=== PATIENT | female | born 1935 | race Caucasian/White ===

== ENCOUNTER 2017-01-09 12:15 | Observation (INO) | payer MEDICARE, BC, OTHER ==
[~2017-01-09] VITALS: Ht 162.6 cm; Wt 81.7 kg
[~2017-01-09 12:15] MED LIST: KEFLEX500 MG PO; METOPROLOL TART50 MG PO; NORVASC5 MG PO; PANTOPRAZOLE SO40 MG PO; PROZAC20 MG PO
[2017-01-09] MEDS ORDERED: AMITRIPTYLINE H50 MG PO (12:48)
[2017-01-09] MEDS ORDERED: ARIPIPRAZOLE5 MG PO (15:36)
[2017-01-09] MEDS ORDERED: VENTOLIN HFA18 GM INH (15:38)
--- NOTE | 2017-01-09 15:39 | NUR ---
MED REC COMPLETE WITH [employer] AND [employer] REFILL HISTORY.
--- NOTE | 2017-01-09 16:02 | NUR ---
PATIENT ADMITTED TO ROOM 122 FROM ER, ALERT AND ORIENTED AT THIS TIME AND NO S/S OF ANY NEURO DEFICIT UPON ADMIT TO THE FLOOR. PATIENT HAS AMBULATED TO THE BATHROOM WITH STANDBY ASSIST AND IS STEADY ON HER FEET. SHE IS ABLE TO ANSWER ALL OF HER ADMIT QUESTIONS HERSELF AND IS ORIENTED TO HER ROOM. PATIENT VITALS ARE TAKEN AND SHE REMAINS ON RA. NO C/O PAIN AND NO SOB AT THIS TIME.
--- NOTE | 2017-01-09 18:45 | NUR ---
PATIENT INDEPENDANT IN ROOM, PROVIDING STBY ASSIST. CLAUS CHECKS INSIGNIFICANT. NO COMPLAITNS OF PAIN. PROVIDED WATER. PLAN FOR ECHO OF HEART TOMORROW. VS STABLE. PATIENT HAS NO COMPLAINTS OF STROKE LIKE SYMPTOMS, TELE#8
--- NOTE | 2017-01-09 19:12 | EKG ---
[facility] [address] [facility] [place] [address] Signed Normal sinus rhythm Moderate voltage criteria for LVH, may be normal variant Borderline ECG When compared with ECG of 07-OCT-2016 18:15, Nonspecific T wave abnormality no longer evident in Lateral leads Confirmed by CHIARA PENA MD ([id number]) on 01/09/2017 7:12:29 PM Electronically Signed By: CHIARA PENA MD 01/09/171911 PATIENT NAME: PAYTON BARBA Electrocardiogram DATE OF : 39 PHYSICIAN: CHIARA PENA MD REPORT #: [id number] REPORT IS CONFIDENTIAL AND NOT TO BE RELEASED WITHOUT AUTHORIZATION
--- NOTE | 2017-01-09 19:32 | NUR ---
SHIFT REPORT RECIEVED. PATIENT RESTING IN BED. AWAKE AND ALERT. CALL LIGHT IN REACH. DENIES NEEDS AT THIS TIME.
--- NOTE | 2017-01-09 19:48 | NUR ---
CALLED AND DISCUSSED WITH DR. PENA ABOUT PT REQUESTING SLEEPING MEDICATION. DR. PENA STATES THAT IT IS OK FOR HER TO RECEIVE HER PRN AMITRIPTYLINE.
--- NOTE | 2017-01-09 19:59 | NUR ---
EVENING MEDS GIVEN PER ORDER. PATIENT ASSESSMENT COMPLETED AND DOCUMENTED. NEURO CHECK COMPLETE, WNL. PATIENT AAOX3. CRYPTOGRAPHIC VULNERABILITY ANALYST STRENGTH STRONG, EQUAL BILATERALLY. CMS INTACT IN UPPER AND LOWER EXTREMITIES. PUPILS EQUAL AND REACTIVE TO LIGHT. FACIAL MOVEMENTS SYMETYRICAL. PATIENT RESTING IN BED. DENIES PAIN AND NAUSEA. PATIENT STATES HER LAST BOWEL MOVEMENT WAS 01/07/17. STATES SHE IS IRREGULAR WITH HER BM AND USUALLY GOES 4-5 DAYS WITHOUT HAVING ONE. NO FURTHER NEEDS AT THIS TIME. CALL LIGHT IN REACH.
--- NOTE | 2017-01-09 23:12 | NUR ---
PATIENT RESTING IN BED. TELE #8, HR 64. EYES CLOSED. RR14. CALL LIGHT IN REACH.
--- NOTE | 2017-01-10 00:05 | NUR ---
LINDSEY CHECK COMPLETED. FINDINGS WNL. ASSESSMENT DOCUMENTED. TELE BATTERY CHANGED, HR 50 AT SLEEP.
--- NOTE | 2017-01-10 02:00 | NUR ---
PATIENT RESTIN GIN BED. DENIED BLOOM CONVEYOR OPERATOR'S OFFER TO USE THE RESTROOM. TELL #8, HR 53.
--- NOTE | 2017-01-10 04:00 | NUR ---
NEURO CHECK WAS WDL.
--- NOTE | 2017-01-10 04:26 | NUR ---
PT IS SLEEPING AT THIS TIME.
--- NOTE | 2017-01-10 05:10 | NUR ---
PATIENT RESTED WELL THROUGOUT THE NIGHT. NEURO CHECKS Q4, WNL. PATIENT HAD SLURRED SPEECH AND RIGHT SIDED WEAKNESS YESTERDAY BEFORE COMING INTO ED. SYMPTOMS REVOLVED PRIOR TO ARRIVAL. PATIENT ON OBSERVATION. CARDIAC DIET. TELE #8. HAS NOT HAD BM SINCE 01/07/17, STATES THAT IS NORMAL FOR HER. PATIENT DENIED PAIN OR NAUSEA DURING SHIFT. IV IN THE LEFT AC, SL.
--- NOTE | 2017-01-10 07:10 | NUR ---
BEDSIDE REPORT RECEIVED FROM MARY BROWNE, PT AWAKE IN BED. IMAGING IN ROOM WITH PT. PT COMPLAINING OF BACK PAIN, WILL ADMINISTER PRN PAIN MEDICATION. WILL CONTINUE TO MONITOR.
--- NOTE | 2017-01-10 08:28 | NUR ---
PT AWAKE IN BED, ALERT, ORIENTED X3. PT HAS NO NUMBNESS, NO WEAKNESS IN EXTREMITIES BILATERALLY. PT PUPILS EQUAL ROUND AND REACTIVE TO LIGHT. PTS LUNGS CLEAR. NO EDEMA NOTED IN LOWER EXTREMITIES. PT REPORTS NO VISUAL DISTURBANCES. PT STATING SHE IS READY TO GO HOME, "NO REASON TO KEEP ME HERE". PT ATE 85% OF BREAKFAST. BP 143/71, HR 67. PT STATING SOME BACK PAIN, ADMINISTERED PRN ACETAMINOPHEN 500 MG. CALL LIGHT IN REACH, WILL CONTINUE TO MONITOR.
[2017-01-10] MEDS ORDERED: ATORVASTATIN CA40 MG PO ×2 (11:07→11:14)
[2017-01-10] MEDS ORDERED: ASPIRIN EC81 MG PO (11:08)
--- NOTE | 2017-01-10 11:27 | NUR ---
REFUSED SHOWER WANTS TO TAKE A SHOWER AT HOME.
--- NOTE | 2017-01-10 11:50 | NUR ---
DISCHARGE INSTRUCTIONS GIVEN TO PT BY RN AND PHARMACIST. PT HAS NO ADDITIONAL QUESTIONS. PT PROVIDED WITH WRITTEN MATERIAL REGARDING TIA, STROKE, AND CHOLESTEROL. IV D/C'D, TIP INTACT, PT SHIRA. WELL.
== END 2017-01-10 12:00 | disposition home or self-care (01) ==
LOC: ED 12:15 → MS 12:16
PROVIDERS: ADMIT Internal Medicine
DX: G45.1 Carotid artery syndrome (hemispheric) (principal); G81.91 Hemiplegia, unspecified affecting right dominant side; R47.1 Dysarthria and anarthria; E78.5 Hyperlipidemia, unspecified; I10 Essential (primary) hypertension; H91.10 Presbycusis, unspecified ear; F39 Unspecified mood [affective] disorder; F51.04 Psychophysiologic insomnia; Z79.899 Other long term (current) drug therapy; Z87.891 Personal history of nicotine dependence; Z82.3 Family history of stroke
CPT/HCPCS: 70450; 71010; 80053; 80061; 81001; 83036; 84484; 85025; 85610; 85730; 93005; 93010; 93306; 96372; 99285; G0378; J1650

== ENCOUNTER 2017-01-23 08:17 | Emergency (ER) | payer MEDICARE, BC, SELFPAY ==
[~2017-01-23] VITALS: Ht 162.6 cm; Wt 81.2 kg
[~2017-01-23 08:17] MED LIST changes: +AMITRIPTYLINE H50 MG PO; +ARIPIPRAZOLE5 MG PO; +ASPIRIN EC81 MG PO; +ATORVASTATIN CA40 MG PO; +VENTOLIN HFA18 GM INH
[2017-01-23] MEDS ORDERED: MECLIZINE HCL25 MG PO (09:32)
--- NOTE | 2017-01-23 21:55 | EKG ---
[facility] [address] [facility] [place] [address] Signed Normal sinus rhythm Voltage criteria for left ventricular hypertrophy Nonspecific T wave abnormality Abnormal ECG When compared with ECG of 09-JAN-2017 12:48, Nonspecific T wave abnormality now evident in Anterolateral leads Confirmed by CHIARA PENA MD ([id number]) on 01/23/2017 9:55:01 PM Electronically Signed By: CHIARA PENA MD 01/23/17 2155 PATIENT NAME: PAYTON BARBA Electrocardiogram DATE OF : 39 PHYSICIAN: CHIARA PENA MD REPORT #: [id number] REPORT IS CONFIDENTIAL AND NOT TO BE RELEASED WITHOUT AUTHORIZATION
== END 2017-01-23 09:44 | disposition home or self-care (01) ==
LOC: ED 08:17
DX: R42 Dizziness and giddiness (principal); I10 Essential (primary) hypertension; Z87.891 Personal history of nicotine dependence; Z79.82 Long term (current) use of aspirin; Z79.899 Other long term (current) drug therapy
CPT/HCPCS: 70450; 80053; 84484; 85025; 93005; 93010; 96360; 99284; J7030

== ENCOUNTER 2017-03-03 12:19 | Observation (INO) | payer MEDICARE, BC ==
[~2017-03-03] VITALS: Ht 162.6 cm; Wt 81.2 kg
[~2017-03-03 12:19] MED LIST changes: +MECLIZINE HCL25 MG PO
[2017-03-03] MEDS ORDERED: HYDROCHLOROTHIA25 MG PO (12:52)
[2017-03-03] MEDS ORDERED: ASPIRIN325 MG PO (12:55)
--- NOTE | 2017-03-03 14:25 | EKG ---
[facility] [address] [address] [place] [address] Signed Normal sinus rhythm Moderate voltage criteria for LVH, may be normal variant Borderline ECG When compared with ECG of 23-JAN-2017 08:38, No significant change was found Confirmed by CHIARA PENA MD ([id number]) on 03/03/2017 2:24:43 PM Electronically Signed By: CHIARA PENA MD 03/03/17 1425 PATIENT NAME: PAYTON BARBA Electrocardiogram DATE OF : 39 PHYSICIAN: CHIARA PENA MD REPORT #: [id number] REPORT IS CONFIDENTIAL AND NOT TO BE RELEASED WITHOUT AUTHORIZATION
--- NOTE | 2017-03-03 17:04 | NUR ---
PT ARRIVED ON THE FLOOR VIA STRETCHER. PT ABLE TO SELF TRANSFER TO BED. PT HARD OF HEARING AT BASELINE, HEARING AID RIGHT EAR ONLY. PT REPORTS PAIN IN BACK WHICH IS CHRONIC. ALSO REPORTS HEADACHE. SLIGHT L FACIAL DROOP, EYES EQUAL AND REACTIVE, CABLE WAY OPERATOR EQUAL, NO DRIFTING OF ARMS, CMS INTACT. PT HAS SLURRED SPEECH AT BASELINE. HOME MEDS VERIFIED WITH PHARMACY, PT, AND PT'S DAUGHTER. HOME MEDS SENT HOME WITH PTS DAUGHTER. PT STATED THAT SYMPTOMS APPEARED AND DISAPPEARED VERY QUICKLY. STATES SHE FEELS NORMAL NOW.
--- NOTE | 2017-03-03 17:11 | NUR ---
Medications reconciled by pharmacist using prescription bottles, pharmacy records and patient interview. Recently started on trial of HCTZ for unexplained hearing loss. Patient's amlodipine was discontinued at that time to avoid hypotension.
--- NOTE | 2017-03-03 19:15 | NUR ---
RECEIVED REPORT FROM RN. PATIENT IS RESTING COMFORTABLY IN BED, DENIES NEEDS AT THIS TIME. CALL LIGHT WITHIN REACH.
--- NOTE | 2017-03-03 21:30 | NUR ---
PATIENT IS RESTING COMFORTABLY IN BED, BREATHING IS EVEN AND UNLABORED. VITALS AND SHIFT ASSESSMENT DONE. DENIES NEEDS AT THIS TIME. CALL LIGHT WITHIN REACH.
--- NOTE | 2017-03-04 02:34 | NUR ---
PATIENT RESTING COMFORTABLY IN BED, BREATHING IS EVEN AND UNLABORED. SHE DENIES NEEDS AT THIS TIME. VITALS AND ASSESSMENT DONE. EDUCATED PATIENT ON SAFETY AND THE IMPORTANCE OF CALLING STAFF FOR ASSISTANCE TO BATHROOM. DUE TO PATIENT BEING LYTTON, EVEN WITH HEARING DEVICE IN, INSTRUCTION WAS WRITTEN AND PATIENT READ BACK INFORMATION AND REPORTED UNDERSTANDING. CALL LIGHT WITHIN REACH.
--- NOTE | 2017-03-04 04:56 | NUR ---
PATIENT'S NIGHT WAS UNEVENTFUL. SHE HAS BEEN RESTING COMFORTABLY IN BED THROUGHOUT SHIFT. VSS, PATIENT HAS HAD NO COMPLAINTS OF PAIN. SHE IS A SBA, HER IV IS SALINE LOCKED. TELEMETRY HAS BEEN UNREMARKABLE WITH PATIENT REMAINING IN SINUS RHYTHM. NO ACUTE CHANGES FROM BEGINNING OF SHIFT ASSESSMENT.
--- NOTE | 2017-03-04 05:28 | NUR ---
PATIENT RESTING COMFORTABLY IN BED, BREATHING IS EVEN AND UNLABORED. PULSE OF 61, CURRENTLY IN SINUS RHYTHM. CALL LIGHT WITHIN REACH.
--- NOTE | 2017-03-04 05:53 | NUR ---
PATIENT RESTING COMFORTABY IN BED, BREATHING IS EVEN AND UNLABORED. DENIES NEEDS AT THIS TIME. ASSESSMENT DONE, CALL LIGHT WITHIN REACH.
--- NOTE | 2017-03-04 06:03 | NUR ---
PATIENT REPORTS 7/10 PAIN IN LEFT KNEE. PRN TYLENOL GIVEN PER EMAR. DENIES OTHER NEEDS AT THIS TIME. CALL LIGHT WITHIN REACH.
--- NOTE | 2017-03-04 07:24 | NUR ---
REPORT RECIEVED FROM MARY BENNETT. PT ASLEEP.
--- NOTE | 2017-03-04 07:54 | NUR ---
PATIENT IN BED DOING WELL. DOES NOT WANT TO GET INTO CHAIR FOR BREAKFAST. REFILLED ICE WATER, UPDATED WHITEBOARD, TIDIED ROOM .
--- NOTE | 2017-03-04 08:06 | NUR ---
PT NOTTAWASEPPI POTAWATOMI BUT CAN HEAR THIS RN AND ANSWERS QUESTIONS APPROP. STATES ALL S\S HAVE RESOLVED.
[2017-03-04] MEDS ORDERED: PLAVIX75 MG PO (09:19)
--- NOTE | 2017-03-04 11:02 | NUR ---
GOT PATIENT DRESSED AND READY FOR DISCHARGE.
--- NOTE | 2017-03-04 11:07 | NUR ---
MADE AN APPT. WITH CORNEL KAUFFMAN AND FAXED ALL THE PAPERWORK NEEDED FOR THEM TO HAVE FOR HER APPT ON FRIDAY. THEY KNOW THAT DR DEL VALLE WOULD LIKE HER REFERRED TO DR MALONE A VASCULAR DR IN [place].
== END 2017-03-04 11:00 | disposition home or self-care (01) ==
LOC: ED 12:19 → MS 12:21
PROVIDERS: ADMIT Internal Medicine
DX: G45.9 Transient cerebral ischemic attack, unspecified (principal); R93.8 Abnormal findings on diagnostic imaging of other specified body structures; I10 Essential (primary) hypertension; E78.5 Hyperlipidemia, unspecified; F39 Unspecified mood [affective] disorder; H91.90 Unspecified hearing loss, unspecified ear; R42 Dizziness and giddiness; Z79.82 Long term (current) use of aspirin; Z79.899 Other long term (current) drug therapy; Z86.73 Personal history of transient ischemic attack (TIA), and cerebral infarction without residual deficits
CPT/HCPCS: 36415; 70450; 70496; 70498; 71010; 80048; 80053; 85025; 85610; 85730; 93005; 93010; 99285; G0378; Q9967

== ENCOUNTER 2017-03-17 18:05 | Emergency (ER) | payer MEDICARE, BC ==
[~2017-03-17] VITALS: Ht 162.6 cm; Wt 81.2 kg
[~2017-03-17 18:05] MED LIST changes: +ASPIRIN325 MG PO; +HYDROCHLOROTHIA25 MG PO; +PLAVIX75 MG PO
[2017-03-17] MEDS ORDERED: AMLODIPINE BESYL5 MG PO (18:52)
== END 2017-03-17 20:32 | disposition home or self-care (01) ==
LOC: ED 18:05
DX: R15.9 Full incontinence of feces (principal); I10 Essential (primary) hypertension; Z86.73 Personal history of transient ischemic attack (TIA), and cerebral infarction without residual deficits; Z90.49 Acquired absence of other specified parts of digestive tract; Z96.651 Presence of right artificial knee joint; Z79.899 Other long term (current) drug therapy
CPT/HCPCS: 99284

== ENCOUNTER 2018-01-19 11:02 | Inpatient (IN) | payer MEDICARE, BC ==
[~2018-01-19] VITALS: Ht 162.6 cm; Wt 77.8 kg
--- OUTSIDE RECORDS SUMMARY | ~2018-01-19 | XMS | Clinical Summary ---
Demographics + + + | Address | [address] | | | [place] [address] | + + + | Home Phone | | + + + | Preferred Language | Unknown | + + + | Marital Status | | + + + | Synagogue Affiliation | Unknown | + + + | Race | Unknown | + + + | Ethnic Group | Unknown | + + + Author + + + | Author | [facility] | + + + | Organization | [facility] | + + + | Address | Unknown | + + + | Phone | Unavailable | + + + Support + + + + + | Name | Relationship | Address | Phone | + + + + + | Nidia Upton | ECON | [address] | | | | | [place] | | | | | [address] | | + + + + + Care Team Providers + +------+ + | Care Senior Genetic Counselor Name | Role | Phone | + +------+ + | Ria Valdez PA-C | PP | | + +------+ + Allergies No Known Allergies Current Medications + + +-------+---------+------+------+-------+ | Prescription | Sig. | Disp. | Refills | Star | End | Statu | | | | | | t | Date | s | | | | | | Date | | | + + +-------+---------+------+------+-------+ | amitriptyline | Take 50 mg by mouth | | | | | Activ | | (ELAVIL) 50 MG | nightly. | | | | | e | | tablet | | | | | | | + + +-------+---------+------+------+-------+ | atorvastatin | Take 40 mg by mouth | | | | | Activ | | (LIPITOR) 40 MG | nightly. | | | | | e | | tablet | | | | | | | + + +-------+---------+------+------+-------+ | docusate sodium | Take 100 mg by mouth | | | | | Activ | | (COLACE) 100 MG | daily. | | | | | e | | capsule | | | | | | | + + +-------+---------+------+------+-------+ | FLUoxetine | Take 20 mg by mouth | | | | | Activ | | (PROZAC) 20 MG | daily. | | | | | e | | capsule | | | | | | | + + +-------+---------+------+------+-------+ | | Take 25 mg by mouth | | | | | Activ | | hydrochlorothiazide | daily. | | | | | e | | (HYDRODIURIL) 25 MG | | | | | | | | tablet | | | | | | | + + +-------+---------+------+------+-------+ | meclizine | Take 25 mg by mouth | | | | | Activ | | (ANTIVERT) 25 MG | 3 (three) times | | | | | e | | tablet | daily as needed. | | | | | | + + +-------+---------+------+------+-------+ | metoprolol | Take 50 mg by mouth | | | | | Activ | | (TOPROL-XL) 50 MG 24 | daily. | | | | | e | | hr tablet | | | | | | | + + +-------+---------+------+------+-------+ | clopidogrel | Take 75 mg by mouth | | | | | Activ | | (PLAVIX) 75 MG | daily. | | | | | e | | tablet | | | | | | | + + +-------+---------+------+------+-------+ | albuterol | Inhale 2 puffs into | | | | | Activ | | (PROVENTIL | the lungs every 4 | | | | | e | | HFA;VENTOLIN HFA) | (four) hours as | | | | | | | 108 (90 Base) | needed for Wheezing. | | | | | | | MCG/ACT inhaler | | | | | | | + + +-------+---------+------+------+-------+ | diclofenac | Apply 2 g topically | | | | | Activ | | (VOLTAREN) 1 % | 4 (four) times | | | | | e | | | daily. | | | | | | + + +-------+---------+------+------+-------+ | simvastatin | | | | 05/2 | | Activ | | (ZOCOR) 20 MG tablet | | | | 8/20 | | e | | | | | | 18 | | | + + +-------+---------+------+------+-------+ Active Problems + + + | Problem | Noted Date | + + + | Depression | 04/25/2017 | + + + | Essential hypertension | 04/25/2017 | + + + | Primary insomnia | 04/25/2017 | + + + | Urinary tract infection without hematuria | 04/25/2017 | + + + Family History + + +------+ + | Medical History | Relation | Name | Comments | + + +------+ + | Aneurysm | Father | | | + + +------+ + | Hypertension | Father | | | + + +------+ + | Hypertension | Mother | | | + + +------+ + + +------+ + + | Relation | Name | Status | Comments | + +------+ + + | Father | | | | + +------+ + + | Mother | | | | + +------+ + + Social History + +-------+ +--------+------+ | Tobacco Use | Types | Packs/Day | Years | Date | | | | | Used | | + +-------+ +--------+------+ | Never Smoker | | | | | + +-------+ +--------+------+ + +---+---+---+ | Smokeless Tobacco: | | | | | Never Used | | | | + +---+---+---+ + + +---------+ + | Alcohol Use | Drinks/We | oz/Week | Comments | | | ek | | | + + +---------+ + | No | | | | + + +---------+ + + + + | Sex Assigned at | Date Recorded | | | | + + + | Not on file | | + + + Last Filed Vital Signs + + + + | Vital Sign | Reading | Time Taken | + + + + | Blood Pressure | 124/86 | 09/23/2017 10:20 AM PDT | + + + + | Pulse | 60 | 09/23/2017 10:20 AM PDT | + + + + | Temperature | - | - | + + + + | Respiratory Rate | 16 | 09/23/2017 10:20 AM PDT | + + + + | Oxygen Saturation | 93% | 09/23/2017 10:20 AM PDT | + + + + | Inhaled Oxygen | - | - | | Concentration | | | + + + + | Weight | 78.3 kg (172 lb 9.6 | 09/23/2017 10:20 AM PDT | | | oz) | | + + + + | Height | 161.3 cm (5' 3.5") | 09/23/2017 10:20 AM PDT | + + + + | Body Mass Index | 30.1 | 09/23/2017 10:20 AM PDT | + + + + Plan of Treatment +--------+ + + + + | Date | Type | Specialty | Care Team | Description | +--------+ + + + + | 03/24/ | Appointment | | | | | 2017 | | | | | +--------+ + + + + | 03/24/ | Office | | Rhonda Whelan DNP | | | 2017 | Visit | | [address] | | | | | | [place] | | | | | | [address] | | | | | | | | +--------+ + + + + + + + + + | Health Maintenance | Due Date | Last Done | Comments | + + + + + | Vaccine: | | | | | Dtap/Tdap/Td (1 - | 7 | | | | Tdap) | | | | + + + + + | Vaccine: Zoster (1 | | | | | of 2) | 8 | | | + + + + + | DEXA SCAN SCREENING | | | | | | 3 | | | + + + + + | Vaccine: | | | | | Pneumococcal 65+ | 3 | | | | Low/Medium Risk (1 | | | | | of 2 - PCV13) | | | | + + + + + | Vaccine: Influenza | | | | | (#1) | 8 | | | + + + + + Results Not on filefrom Last 3 Months Insurance + +--------+ +------+-------+ + | Payer | Benefi | Subscriber | Type | Phone | Address | | | t Plan | ID | | | | | | / | | | | | | | Group | | | | | + +--------+ +------+-------+ + | MEDICARE | MEDICA | [id number] | | | [address] | | | RE | | | | [place] [id number] | | | IP-OP | | | | | + +--------+ +------+-------+ + | [employer] | BLUE | [id number] | | | | | | CROSS | 8 | | | | | | BLUE | | | | | | | SHIELD | | | | | | | FEP | | | | | + +--------+ +------+-------+ + + +--------+ +--------+ + + | Guarantor Name | Accoun | Relation to | Date | Phone | Billing Address | | | t Type | Patient | of | | | | | | | | | | + +--------+ +--------+ + + | PAYTON ANDERSON | Person | Self [birth year] | Home: | [address] | | | al/Fam | | 1936 | [phone] | [place] [address] | | | [place] | | | [phone] | | + +--------+ +--------+ + +
--- OUTSIDE RECORDS SUMMARY | ~2018-01-19 | XMS | Clinical Summary ---
Demographics + + + | Address | [address] | | | [place] [address] | + + + | Home Phone | | + + + | Preferred Language | Unknown | + + + | Marital Status | | + + + | Hoahaoism Affiliation | Unknown | + + + | Race | Unknown | + + + | Ethnic Group | Unknown | + + + Author + + + | Author | [facility] | + + + | Organization | [facility] | + + + | Address | Unknown | + + + | Phone | Unavailable | + + + Support + + + + + | Name | Relationship | Address | Phone | + + + + + | Nidia Upton | ECON | [address] | | | | | [place] | | | | | [address] | | + + + + + Care Team Providers + +------+ + | Care Pocket Assembler Name | Role | Phone | + [...] [place] | | | | | | [address] | | | | | | | [...] +------+-------+ + | MEDICARE | MEDICA | [id number] | | | [address] | | | RE | | | | [place] [phone] | | | IP-OP | | | | | + +--------+ +------+-------+ + | [employer] | BLUE | [id number] | | | | | | CROSS [...] | 1936 | [phone] | [place] [address] | | | [place] | | | [phone] | | + +--------+ +--------+ + +
--- OUTSIDE RECORDS SUMMARY | ~2018-01-19 | XMS | Clinical Summary ---
Demographics + + + | Address | [address] | | | [place] [address] | + + + | Home Phone | | + + + | Preferred Language | Unknown | + + + | Marital Status | | + + + | Denominational Affiliation | Unknown | + + + | Race | Unknown | + + + | Ethnic Group | Unknown | + + + Author + + + | Author | [facility] | + + + | Organization | [facility] | + + + | Address | Unknown | + + + | Phone | Unavailable | + + + Support + + + + + | Name | Relationship | Address | Phone | + + + + + | Nidia Upton | ECON | [address] | | | | | [place] | | | | | [address] | | + + + + + Care Team Providers + +------+ + | Care Magnetic Observer Name | Role | Phone | + [...] [place] | | | | | | [address] | | | | | | | [...] +------+-------+ + | MEDICARE | MEDICA | [id number] | | | [address] | | | RE | | | | [place] [phone] | | | IP-OP | | | | | + +--------+ +------+-------+ + | [place] | BLUE | [id number] | | | | | | CROSS [...] | 1936 | [phone] | [place] [address] | | | [place] | | | [phone] | | + +--------+ +--------+ + +
[~2018-01-19 11:02] MED LIST changes: +AMLODIPINE BESYL5 MG PO; +SIMVASTATIN20 MG PO
[2018-01-19] MEDS ORDERED: SIMVASTATIN40 MG PO (14:30)
[2018-01-19] MEDS ORDERED: ZOCOR40 MG PO (18:09)
--- NOTE | 2018-01-22 07:51 | OR ---
[facility] [address] [place], [place] [address] Signed DATE OF OPERATION: 01/21/2018 SURGEON: Endy Barakat MD PREOPERATIVE DIAGNOSIS: Fracture dislocation, right ankle. POSTOPERATIVE DIAGNOSIS: Fracture dislocation, right ankle. PROCEDURE PERFORMED: Closed reduction, external fixator application right ankle. ASSISTANTS: 1. NORM Bills. 2. Sheldon. 3. Kelechi RODAS. ANESTHESIA: General. BLOOD LOSS: Minimal. IMPLANTS: Synthes adjustable external fixator. BRIEF HISTORY: Payton is an 82-year-old female who suffered a ground level fall the day before yesterday. She is on Plavix and we were unable to do a spinal anesthetic. Risks and benefits of operative intervention were discussed with her and she elected to proceed. Her ankle was very unstable. It was not removed from the splint to visualize the skin. DESCRIPTION OF PROCEDURE: Once consent was obtained, she was taken to the operating room. After adequate anesthesia, she was placed on operating room table. The splint was removed. There was extensive subcutaneous hematoma and two large blisters laterally. There is a smaller blister medially. Immediately it became evident that an open reduction, and internal fixation was not a good option due to the condition of the soft tissue. We then elected to go to the backup plan with closed reduction, external fixator. Once the extremity Electronically Signed By: ENDY BARAKAT MD 01/22/18 0751 PATIENT NAME: PAYTON BARBA OPERATIVE REPORT DATE OF : 39 REPORT #: [id number] PHYSICIAN: ENDY BARAKAT MD PCP: CORNEL KAUFFMAN PAC REPORT IS CONFIDENTIAL AND NOT TO BE RELEASED WITHOUT AUTHORIZATION [facility] [address] [place], [place] [address] Signed was prepped and draped in a standard sterile fashion, two 4.5 Schanz pins were placed in the proximal medial tibia. Next Schanz pin was placed in the calcaneus in the 3rd or 4th in the talar neck. The adjustable external fixator was then placed over the Schanz pins and tightened. Under image intensifier guidance, the ankle was reduced both in the coronal and sagittal planes and the external fixator was tightened. At least an inch was left between the external fixator, and the skin. Final radiographs showed good reduction and alignment. The external fixator was tightened and the Schanz pins were cut off and caps were placed over them. The blisters laterally were covered with a Mepilex Ag dressing. The pin sites were then dressed with sterile gauze and sterile Kerlix and an Stanislaw wrap. She was awakened, and taken to recovery room in satisfactory condition. All sponge, needle, and instrument counts were correct. Endy Barakat MD BA/GERTRUDIS /[id number] Copies: ~ Electronically Signed By: ENDY BARAKAT MD 01/22/18 0751 PATIENT NAME: PAYTON BARBA OPERATIVE REPORT DATE OF : 39 REPORT #: [id number] PHYSICIAN: ENDY BARAKAT MD PCP: CORNEL KAUFFMAN PAC REPORT IS CONFIDENTIAL AND NOT TO BE RELEASED WITHOUT AUTHORIZATION
== END 2018-01-23 09:15 | disposition swing bed (61) | DRG 494 ==
LOC: ED 11:02 → MS 11:03
PROVIDERS: ADMIT Specialist
PROC: 3E033XZ Introduction of Vasopressor into Peripheral Vein, Percutaneous Approach (ICD-10-PCS; 2018-01-21)
PROC: 0QSG35Z Reposition Right Tibia with External Fixation Device, Percutaneous Approach (ICD-10-PCS; principal; 2018-01-21 08:15)
DX: S82.841A Displaced bimalleolar fracture of right lower leg, initial encounter for closed fracture (principal); I10 Essential (primary) hypertension; E78.5 Hyperlipidemia, unspecified; F32.9 Major depressive disorder, single episode, unspecified; K59.09 Other constipation; R26.81 Unsteadiness on feet; R50.9 Fever, unspecified; G25.1 Drug-induced tremor; T42.6X5A Adverse effect of other antiepileptic and sedative-hypnotic drugs, initial encounter; V58.4XXA Person boarding or alighting a pick-up truck or van injured in noncollision transport accident, initial encounter; Y92.239 Unspecified place in hospital as the place of occurrence of the external cause; Z79.02 Long term (current) use of antithrombotics/antiplatelets; Z79.899 Other long term (current) drug therapy; Z88.1 Allergy status to other antibiotic agents; Z88.5 Allergy status to narcotic agent
CPT/HCPCS: 27840; 36415; 70450; 71045; 73600; 73610; 80048; 80053; 81001; 85025; 85610; 94667; 94668; 94762; 94799; 96361; 96374; 96375; 97110; 97162; 97530; 99152; 99285; C1713; J0330; J0360; J0690; J1100; J2405; J2704; J3010; J7030; J7120

== ENCOUNTER 2018-07-21 10:00 | Day surgery (SDC) | payer MEDICARE, BC ==
[~2018-07-21] VITALS: Ht 162.6 cm; Wt 66.2 kg
--- NOTE | ~2018-07-21 | OR ---
[facility] [address] [place], [place] [address] Draft DATE OF OPERATION: 07/21/2018 SURGEON: Dimitry Smith MD PREOPERATIVE DIAGNOSES: Right middle ear effusion and bilateral hearing loss. POSTOPERATIVE DIAGNOSES: Right middle ear effusion and bilateral hearing loss. PROCEDURE: Bilateral myringotomy and ventilation tube insertion with T-tubes. ANESTHESIA: General LMA; TELEPHONIC NURSE CASE MANAGER, Janay Johnson. PREOPERATIVE HISTORY: Payton is an 82-year-old lady with a long history of hearing loss. She had a ventilation tube placed in the right ear in the past, which has extruded. She has a recurrent middle ear effusion on the right, taken to the operating for the above-mentioned procedures. PROCEDURE AND FINDINGS: After informed consent, the patient was taken to the operating room, placed in supine position where general LMA anesthesia was induced. The patient and procedure were verified. The patient was repositioned. Right ear was examined with the operating microscope. The eardrum was dull, retracted very dark to purple with an obvious middle ear effusion. The patient has been on Plavix, which has been stopped 5 days preop. The right eardrum myringotomy was made, anterior-inferior radial myringotomy. Dark brown purplish thin fluid was suctioned from the middle ear space. T-Tube placed in myringotomy site. Ofloxacin ophthalmic drops applied to the ear canal, cotton ball the meatus. The left ear was examined with the operating microscope. The eardrum was slightly dull, retracted. Anterior-inferior radial myringotomy was made. No middle ear effusion. T-Tube was placed. Drops cotton ball. The patient tolerated the procedure well, was awakened, extubated, transported to recovery room in good condition. No complications. BLOOD LOSS: Minimal. PATIENT NAME: PAYTON BARBA OPERATIVE REPORT DATE OF : 39 REPORT #: [id number] PHYSICIAN: DIMITRY SMITH MD PCP: CORNEL KAUFFMAN PAC REPORT IS CONFIDENTIAL AND NOT TO BE RELEASED WITHOUT AUTHORIZATION [address] [address] [place] SPECIMEN: None. DRAINS: None. Dimitry Smith MD GC/GERTRUDIS /[id number] Copies: ~ PATIENT NAME: PAYTON BARBA OPERATIVE REPORT DATE OF : 39 REPORT #: [id number] PHYSICIAN: DIMITRY SMITH MD PCP: CORNEL KAUFFMAN PAC REPORT IS CONFIDENTIAL AND NOT TO BE RELEASED WITHOUT AUTHORIZATION
[~2018-07-21 10:00] MED LIST changes: +COZAAR50 MG PO; +FLUOXETINE HCL60 MG PO; +HYDROCODON-ACE1 EA11 PO; +MELATONIN3 M2 PO; +MILK OF MA400 MG/5 M PO; +MIRALAX17 GM PO; +NICARDIPINE HCL20 MG PO; +NORCO 7.5-3251 EACH PO; +SIMVASTATIN40 MG PO; +TOPROL XL50 MG PO; +ZOCOR40 MG PO; +ZOFRAN ODT4 MG PO
--- NOTE | 2018-07-21 12:39 | NUR ---
07/21/18 1239 Sheets,Sammie 1227 PT ARRIVED TO PACU ON 6L VIA MASK, ORAL AIRWAY IN PLACE. PT NONAROUSABLE. RESP EVEN AND UNLABORED. 1231 MD AT BEDSIDE AND PT OPENED HER EYES AND ORAL AIRWAY REMVOED. PT BACK TO SLEEP. 1235 PT WOKE TO VERBAL STIMULI AND PT REPORTS SHE CAN HEAR SO MUCH BETTER. O2 MASK REMOVED. PT RESING IN BED PT DENIES PAIN AND NAUSEA.
--- NOTE | 2018-07-21 13:00 | NUR ---
PT IS BACK TO DS FROM PACU. SHE IS ALERT, HEARING BETTER. DAUGHTER IS AT THE BEDSIDE. TOLERATING SIPS OF WATER WELL, EATING JELLO. NO ADDITIONAL NEEDS AT THIS TIME. CALL LIGHT WITHIN REACH
== END 2018-07-21 14:00 | disposition home or self-care (01) ==
LOC: OPS 10:00 → DS 10:00 → OPS 11:45
PROVIDERS: Otolaryngology
PROC: 099500Z Drainage of Right Middle Ear with Drainage Device, Open Approach (ICD-10-PCS; 2018-07-21)
PROC: 099600Z Drainage of Left Middle Ear with Drainage Device, Open Approach (ICD-10-PCS; principal; 2018-07-21 11:45)
DX: H65.91 Unspecified nonsuppurative otitis media, right ear (principal); H66.92 Otitis media, unspecified, left ear; I10 Essential (primary) hypertension; E78.00 Pure hypercholesterolemia, unspecified; F32.9 Major depressive disorder, single episode, unspecified; Z88.5 Allergy status to narcotic agent; Z88.8 Allergy status to other drugs, medicaments and biological substances; Z86.73 Personal history of transient ischemic attack (TIA), and cerebral infarction without residual deficits; Z79.899 Other long term (current) drug therapy; Z79.02 Long term (current) use of antithrombotics/antiplatelets
CPT/HCPCS: J2704; J3010; J7120

== ENCOUNTER 2018-08-31 09:00 | Inpatient (IN) | payer MEDICARE, BC ==
--- NOTE | 2018-08-19 10:19 | NUR ---
ARELY FOR 08/18/18 1630 PATIENT HERE TODAY FOR PREADMISSION APPOINTMENT. HER DAUGHTER JOSE IS WITH HER. SHE IS SCHEDULED TO HAVE A LEFT TOTAL KNEE ARTHROPLASTY DONE ON 08/31/18. THEY WILL BE ATTENDING THE [facility] ON FRIDAY AND WOULD LIKE PHYSICAL THERAPY SET UP WITH [facility] AFTER SURGERY. SHE HAS BOTH A FRONT WHEELED WALKER AND A FOUR WHEELED WALKER, A TRANSFER SHOWER CHAIR AND HAND HELD SHOWER HEAD IN THE BATHROOM. HER DAUGHTER ASSISTS HER WITH SHOWERING NOW. THEY HAVE TWO STEPS INTO THE HOME ALONG WITH A RAMP AND NO STEPS INSIDE THE HOME. SHE CURRENTLY LIVES WITH HER DAUGHTER WHO HELPS HER TO APPOINTMENTS AND OTHER DAILY DUTIES. THIS INFORMATION WILL BE SENT TO DR GONZALEZ OFFICE AND CASE MANAGEMENT FOR FURTHER FOLLOW UP.
[~2018-08-31] VITALS: Ht 160 cm; Wt 67.1 kg
--- OUTSIDE RECORDS SUMMARY | ~2018-08-31 | XMS | Clinical Summary ---
Demographics + + + | Address | [address] | | | [place] [address] | + + + | Home Phone | | + + + | Preferred Language | Unknown | + + + | Marital Status | | + + + | Synagogue Affiliation | Unknown | + + + | Race | Unknown | + + + | Ethnic Group | Unknown | + + + Author + + + | Author | [facility] [employer] [facility] | + + + | Organization | [facility] [employer] [facility] | + + + | Address | Unknown | + + + | Phone | Unavailable | + + + Support + + + + + | Name | Relationship | Address | Phone | + + + + + | Nidia Upton | ECON | [address] | | | | | [place] | | | | | [address] | | + + + + + Care Team Providers + +------+ + | Care Driver Trainee Name | Role | Phone | + [...] + + + + Plan of Treatment + + + + + | Health [...] Vaccine: Influenza | | | | | (Season Ended) | 9 | | | + + + + [...] +------+-------+ + | MEDICARE | MEDICA | [id number] | | | [address] | | | RE | | | | [place] [phone] | | | IP-OP | | | | | + +--------+ +------+-------+ + | REGENCE | BLUE | [id number] | | | | | | CROSS [...] Self | [birth year] | Home: | [address] | | | [place] | | [phone] | [phone] [place] [address] | | | [place] | | | [phone] | | + +--------+ +--------+ + +
[~2018-08-31 09:00] MED LIST changes: -FLUOXETINE HCL60 MG PO; +MECLIZINE HCL12.5 MG PO; +TYLENOL EXTRA500 MG PO
--- NOTE | 2018-08-31 10:39 | NUR ---
PT HAS CLOTHING AND GLASSES IN BAG AND HEARING AID IN BAG. BAND AID PLACED L HAND WHERE PT SAYS CAT BIT HER. IS PURPLE RED WITH 3 CORNER TEAR. NO SWELLING OR DRAINAGE NOTED. DR GONZALEZ LOOKED AT IT.
[2018-08-31] MEDS ORDERED: METOPROLOL TART50 MG PO (11:24)
[2018-08-31] MEDS ORDERED: AMITRIPTYLINE H50 MG PO (11:25)
--- NOTE | 2018-08-31 12:41 | NUR ---
transemic acid hung by cata gracia rn
--- NOTE | 2018-08-31 13:45 | NUR ---
PT TO FLOOR GIUSEPPE KHAN. PT DROWSY BUT AROUSABLE. RATES PAIN 6\10. DRESSING CDI, FLASHING GREEN. CAN WIGGLE TOES.
--- NOTE | 2018-08-31 14:54 | NUR ---
08/31/18 1454 Shavonne Esparza 1410 PT ARRIVED IN PACU SLEEPY WITH ORAL AIRWAY IN PLACE. SATS 94% ON RA. 1415 SATS DROPPED TO 88% ON RA. O2 AT 10L VIA MASK PLACED AND SATS INCREASED TO 100%. ZOYA DRSG CDI WITH GREEN LIGHT FLASHING. ON QUE PUMP SET AT 6ML/HR FROM OR. 1425 PT AWAKENS. ORAL AIRWAY REMOVED. OXYGEN DECREASED TO 6L VIA MASK. CRYO CUFF PLACED ON L KNEE. 1439 C/O L KNEE PAIN 8/10. FENTANYL 25MCG GIVEN IVP. 1445 TORADOL 15MG GIVEN IVP PER DR ORDERS. 1447 PAIN DOWN TO 7/10. FENTANYL 25MCG GIVEN IVP. 1454 PT RESTING. REU.
--- NOTE | 2018-08-31 16:48 | NUR ---
VS STABLE. UP TO BEDSIDE COMMODE FOR 400 URINE. PT ASSISTED BACK TO BED, ABLE TO MOVE SELF EASILY. RATES PAIN 5/10.
--- NOTE | 2018-08-31 17:22 | NUR ---
PT RESTING WITH EYES CLOSED.
--- NOTE | 2018-08-31 18:57 | NUR ---
PATIENT IN BED RESTING WITH EYES CLOSED. CRYO FILLED. FRESH WATER GIVEN. CALL LIGHT IN REACH. NO FURTHER NEEDS AT THIS TIME.
--- NOTE | 2018-08-31 19:35 | NUR ---
BEDSIDE REPORT RECEIVED FROM MARY LAURENT. PT RESTING IN BED ON 2L OXYGEN BY HAMILTON, SATURATIONS WNL. ZOYA DRESSING BLINKING GREEN. UMANG WRAP CDI. SCDS AND CRYO CUFF IN PLACE. PT STATES PAIN IS 5/10 "OKAY". CALL LIGHT IN REACH. PT GIVEN SANDWICH BOX BY LISANDRA HERNANDEZ AT THIS TIME. NO ADDITIONAL REQUESTS.
--- NOTE | 2018-08-31 20:11 | NUR ---
ROUNDED CHARGE. PATIENT IS BEING ASSISTED BACK TO BED BY WALL AND FLOOR TILER AND STUDENT RN. PATIENT DENIES ANY PAIN. PATIENT DENIES ANY COMMENTS, QUESTIONS, OR CONCERNS.
--- NOTE | 2018-08-31 20:23 | NUR ---
V/S AND I&O TAKEN AND RECORDED. 2 PA TO BEDSIDE COMMODE USING WALKER AND BACK TO BED. SCD, CRYO AND CPOX ARE BACK ON. ICE WATER AND CRYO CUFF REFILLED. NO OTHER NEEDS AT THIS TIME. BEDSIDE TABLE AND CALL LIGHT WITHIN REACH.
--- NOTE | 2018-08-31 20:55 | NUR ---
PT ASSESSMENT COMPLETE. RESTING IN BED. RATES PAIN 7/10 IN LEFT KNEE. PRN AND SCHEDULED PAIN MEDICATION ADMINISTERED. CSM INTACT. UMANG WRAP CDI, ZOYA BLINKING GREEN. ON Q PUMP TO 6 ML/HR IN PLACE. CRYO CUFF WITH ICE, KIN HOSE AND SCDS ON. PT ALERT AND ORIENTED X 4. CALL LIGHT IN REACH. IV SALINE LOCKED.
--- NOTE | 2018-08-31 22:45 | NUR ---
CHECKED ON PT. RESTING IN BED WITH EYES CLOSED. BREATHING EQUAL AND NON-LABORED. SPO2 97% ON 2L OXYGEN BY NC. LIGHTS OFF IN ROOM.
--- NOTE | 2018-09-01 01:33 | NUR ---
PT ASSESSMENT AND VS COMPLETE. DRESSING CDI, ZOYA DRESSING FLASHING GREEN LIGHT. ON Q PUMP IN PLACE TO 6 ML/HR. PT RATES PAIN 5/10 "MUCH BETTER THAN I EXPECTED, PAIN IS OKAY, JUST BARELY AN ACHE". 2PA WITH FWW TO [facility] FOR VOID AND BACK TO BED. PT TOLERATED WELL, GAIT STEADY. SCDS, CRYO CUFF, KIN HOSE, HEEL PROTECTORS IN PLACE. SCHEDULED IV PAIN MEDICATIONS ADMINISTERED. CALL LIGHT IN REACH.
--- NOTE | 2018-09-01 04:03 | NUR ---
PT RESTING IN BED, SPO2 97% ON 2L OXYGEN BY NC, HR 63 ON CONT. PULSE OX. LIGHTS OFF IN ROOM. SCDS, HEEL PROTECTORS, CRYO CUFF IN PLACE.
--- NOTE | 2018-09-01 05:16 | NUR ---
IN PT ROOM FOR MEDICATION ADMINISTRATION. SPO2 WNL ON ROOM AIR AT THIS TIME. PT DENIES PAIN "0/10". DRESSING CDI, ZOYA WOUND VAC BLINKING GREEN. CSM INTACT. 1PA TO BSC WITH FWW SBA, PT GAIT STEADY. PT REQUESTING TO SIT ON COMMODE, CALL LIGHT IN REACH.
--- NOTE | 2018-09-01 06:40 | NUR ---
PT RESTING IN BED THROUGHOUT SHIFT. 1PA W FWW TO BSC FOR VOIDS THIS SHIFT. PTS PAIN WELL CONTROLLED WITH SCHEDULED PAIN MEDICATIONS, PRN PAIN MEDICATION X 1. CRYO CUFF, ON Q PUMP, WOUND VAC WITH GREEN LIGHT ON THROUGHOUT SHIFT, SCDS, AND KIN HOSE IN PLACE. TOLERATING REGULAR DIET WELL, DENIES NAUSEA. HARD OF HEARING. IV SALINE LOCKED.
--- NOTE | 2018-09-01 07:53 | NUR ---
REPORT RECEIVED FROM MARY MORENO. PT SITTING UPRIGHT IN BED GETTING READY TO GET UP FOR BREAKFAST. PT DENIES PAIN AND STATES SHE CAN'T BELIEVE THE DIFFERENCE THIS TIIME.
--- NOTE | 2018-09-01 08:19 | NUR ---
PT UP IN CHAIR, FINISHED BREAKFAST. RATES PAIN 3\10. GIVEN IS FOR FINE CRACKLES IN BASES. DRESSING CDI.
--- NOTE | 2018-09-01 10:53 | NUR ---
PT LAYING IN BED WITH EYES CLOSED AFTER WALKING WITH PROCESS ENGINEERING MANAGER. APPEARED TO TOLERATE WELL.
--- NOTE | 2018-09-01 13:16 | NUR ---
PT UP TO RESTROOM FOR LARGE VOID. ADMINISTERED SCHED. MEDS. DENIES NEED FOR PRN PAIN MEDS. SITTING IN CHAIR DOING WORD SEARCH.
--- NOTE | 2018-09-01 14:52 | NUR ---
TALKED TO DR GONZALEZ REGARDING UPDATE. PT DOING WELL AND HAS NO CONCERNS.
--- NOTE | 2018-09-01 15:10 | NUR ---
pt resting in bed. pt has no needs at this time. pt has been up using bedside commode.
--- NOTE | 2018-09-01 16:28 | NUR ---
PT GIVEN SCHEDULED MEDS. RATES PAIN 3\10. JUST FINISHED JET AIRCRAFT SERVICER. NOT TOO LONG AGO. U\O QS. RA. CALL LIGHT IN REACH. DOING CROSSWORD
--- NOTE | 2018-09-01 17:59 | NUR ---
PT HAD VERY GOOD DAY. PAIN WELL CONTROLLED WITH SCHEDULED MEDS. DRESSING CDI. WORKED WITH PRODUCTION CONSULTANT X2. NO NAUSEA. SAT UP IN CHAIR MOST OF DAY. RA ALL DAY.
--- NOTE | 2018-09-01 18:02 | NUR ---
pt resting in bed. pt has no needs at this time. call light within reach.
--- NOTE | 2018-09-01 19:40 | NUR ---
BEDSIDE REPORT RECEIVED FROM MARY LAURENT. PT RESTING IN BED WITH SCDS, CRYO CUFF, HEEL PROTECTORS, KIN HOSE IN PLACE. DRESSING CDI, WOUND VAC FLASHING GREEN. PT STATES 0/10 PAIN AT REST, 8/10 PAIN IN THIGH WITH MOVEMENT "JUST SORE". CALL LIGHT IN REACH. PT GIVEN CHOCOLATE CHIP COOKIE REQUESTED.
--- NOTE | 2018-09-01 21:19 | NUR ---
PT ASSESSMENT COMPLETE. PT RESTING IN BED, STATES READY FOR SLEEP. RATES PAIN 8/10 IN LEFT THIGH WITH MOVEMENT. PRN AND SCHEDULED PAIN MEDICATION ADMINISTERED. DRESSING CDI, WOUND VAC DRESSING FLASHING GREEN. ON Q PUMP IN PLACE AT 6 ML/HR. SCDS, HEEL PROTECTORS, CRYO CUFF, KIN HOSE IN PLACE. CSM INTACT. IV FLUSHED WNL. CALL LIGHT IN REACH, LIGHTS OFF IN ROOM.
--- NOTE | 2018-09-01 22:47 | NUR ---
CHECKED ON PT, RESTING IN BED WITH EYES CLOSED. BREATHING EQUAL AND NON-LABORED. LIGHTS OFF IN ROOM.
--- NOTE | 2018-09-01 23:58 | NUR ---
PT BACK IN BED AFTER UP TO VOID WITH PREVENTIVE MAINTENANCE ENGINEER SINTA ASSIST. PT RATES PAIN 7/10 WITH MOVEMENT IN LEFT THIGH, STATES "ITS OKAY WHILE RESTING". SCHEDULED PAIN MEDICATION ADMINISTERED. CALL LIGHT IN REACH. CRYO CUFF, SCDS, HEEL PROTECTORS, KIN HOSE IN PLACE. LIGHTS OFF IN ROOM.
--- NOTE | 2018-09-02 00:28 | NUR ---
TOOK TO THE BATHROOM USING WALKER AND BACK TO BED. PRIMARY NURSE WAS IN THE ROOM WITH PATIENT. ICE WATER REFILLED.
--- NOTE | 2018-09-02 03:14 | NUR ---
IN PT ROOM FOR SCHEDULED PAIN MEDICATION ADMINISTRATION. PT SLEEPING, AWAKENS TO VOICE. RATES PAIN 7/10 IN THIGH, "NO PAIN IN KNEE". DRESSING CDI, ZOYA FLASHING GREEN LIGHT. CSM INTACT BLE. CRYO CUFF, SCDS, KIN HOSE, HEEL PROTECTORS IN PLACE. PT DENIES TOILETING NEEDS. CALL LIGHT IN REACH.
--- NOTE | 2018-09-02 04:09 | NUR ---
PATIENT ASSISTED TO THE RESTROOM A SBA W/FWW. PATIENT TOLERATED AMBULATION WELL. PATIENT COMPLAINS OF PAIN IN HER UPPER THIGH. PATIENT IS BACK IN BED RESTING. SCDS, TEDHOSE, AND HEEL PROTECOTIORS APPLIED TO BILAT LOW EST. PATIENTS CRYO REFILLED WITH ICE AND APPLIED TO LEFT KNEE AND UPPER THIGH AREA. PATIENT DENIES THE NEED FOR PAIN MEDICATION AT THIS TIME. EDUCATED PATIENT ON PAIN MANAGEMENT AND TO ALERT STAFF IF SHE NEEDS PAIN MEDICATION. PATIENT VERBALIZES UNDERSTANDING. NO FURTHER NEEDS NOTED. CALL LIGHT IN REACH.
--- NOTE | 2018-09-02 05:07 | NUR ---
CHECKED ON PT, RESTING IN BED WITH EYES CLOSED. BREATHING NON-LABORED, VISIBLE CHEST RISE. LIGHTS OFF IN ROOM.
--- NOTE | 2018-09-02 06:24 | NUR ---
PT RESTING IN BED, AWAKENS TO VOICE. VSS. PT DENIES PAIN IN LEFT KNEE, STATES PAIN "BETTER IN THIGH" 08/05. CRYO CUFF WITH ICE IN PLACE. SCDS, KIN HOSE, HEEL PROTECTORS ON. CALL LIGHT IN REACH. ICE WATER PROVIDED.
--- NOTE | 2018-09-02 06:25 | NUR ---
PT AMBULATING WELL TO RESTROOM FOR VOIDS WITH SBA FWW. DRESSING CDI THROUGHOUT SHIFT, WOUND VAC BLINKING GREEN THROUGHOUT SHIFT. PT C/O PAIN IN LEFT THIGH THIS SHIFT, PRN PAIN MEDICATION X 1, CRYO CUFF IN PLACE. ON Q PUMP TO 6 ML/HR IN PLACE. CRYO CUFF, SCDS, HEEL PROTECTORS, KIN HOSE IN PLACE.
--- NOTE | 2018-09-02 07:32 | NUR ---
BEDSIDE REPORT RECIEVED FROM AIDA HERNANDEZ. PT RESTING IN BED, DRESSING INTACT, CRYO CUFF ON AND RUNNING, ZOYA DRESSING BLINKING GREEN, ON Q ON AND RUNNING, SCD'S ON AND RUNNING. PT STATES HER PAIN IS UNDER CONTROL AND HER CALL LIGHT IS WITHIN REACH.
--- NOTE | 2018-09-02 07:49 | OR ---
[facility] [address] [place], [place] [address] Signed DATE OF OPERATION: 08/31/2018 SURGEON: Endy Barakat MD PREOPERATIVE DIAGNOSIS: Severe degenerative joint disease, lateral compartment, left knee. POSTOPERATIVE DIAGNOSIS: Severe degenerative joint disease, lateral compartment, left knee. PROCEDURE PERFORMED: Left total knee arthroplasty with computer navigation. DIETARY SERVICE AIDE: Magdalena Godinez PA-C. Magadlena was present and critical for all portions of the case. ANESTHESIA: General. BLOOD LOSS: 175 mL. IMPLANTS: Fishtail Triathlon size #3 femur, 3 tibia, 11 mm insert, and 32 mm patella. BRIEF HISTORY: Payton is an 82-year-old female with progressive worsening of her osteoarthritis. She was unable to walk affectively and nonoperative treatment had failed. Risks and benefits of operative treatment discussed with her. She elects to proceed. DESCRIPTION OF PROCEDURE: Once consent was obtained, she was taken to the operating room. After adequate anesthesia, she was placed on operating room table. All downside pressure points well padded. Hip bump was placed. The leg was then prepped and draped in a standard sterile fashion. Anterior approach through a straight incision was taken through skin and subcutaneous tissue. Median parapatellar arthrotomy was performed. The infrapatellar fat pad was excised and the MCL was elevated as a sleeve around the posteromedial corner. Anterior horn of the medial meniscus was transected, the lateral meniscus was absent. ACL was transected. The knee was flexed. Navigation guide was pinned to the Electronically Signed By: ENDY BARAKAT MD 09/02/18 0749 PATIENT NAME: PAYTON BARBA OPERATIVE REPORT DATE OF : 39 REPORT #: [id number] PHYSICIAN: ENDY BARAKAT MD PCP: CORNEL KAUFFMAN PAC REPORT IS CONFIDENTIAL AND NOT TO BE RELEASED WITHOUT AUTHORIZATION [facility] [address] [place], [place] [address] Signed distal femur and the femur was registered with the computer. All bleeders were cauterized as we went. The cutting block was then pinned in neutral alignment and the distal femoral cut was made. The distal femur was sized to #3. The AP cutting block was then pinned in alignment with epicondylar axis and the anterior, posterior, and chamfer cuts were made. Her bone was quite soft throughout, particularly on the femoral side. The osteophytes were removed. Attention was then turned to proximal tibia. The menisci were removed to allow better visualization. Navigation guide was dropped on the floor, so we did not use navigation for the second half of the procedure. The cutting block was then aligned with the anterior tibial ridge and 2nd toe and set to take 3 mm off the medial side. The cut was made with care taken to protect the patellar tendon and MCL. The bone was excised and the posterior osteophytes removed off the femur. The posterior release was performed. All bleeders and posterior aspect of the knee were cauterized. The flexion and extension gaps were sized, found to be symmetric at 11 mm. Trials were positioned. Knee was taken through range of motion, found to be stable, and the patella was cut sized and drilled for 32 patella. The distal femoral drill holes were made and the proximal tibial keel punch was used. The bone was pulse lavaged and packed with dry Ray-Margarette. Cement was mixed and reached proper consistency. Placed all implants on all bone surfaces. Tibia was impacted in position first. All overflow was removed. The polyethylene was snapped into position. The femur was impacted into position. Again, any remaining overflow was removed. The knee was extended and nicely loaded. The patella was clamped and overflow removed. The cement was allowed to harden, once it hardened sufficiently the knee was flexed and remaining was removed using osteotomes. The knee was pulse lavaged at intervals, total of 3 L were used. The On-Q pain pump was placed into the adductor canal from the suprapatellar approach. The arthrotomy was then closed using #2 Stratafix, the subcutaneous tissue with 0 Stratafix, and skin with Provena. The ZOYA wound dressing was applied and wrapped with an Stanislaw wrap. She was taken to the recovery room in satisfactory condition. All sponge, needle, and instrument counts were correct. Endy Barakat MD BA/MODL /[id number] Copies: Electronically Signed By: ENDY BARAKAT MD 09/02/18 0749 PATIENT NAME: PAYTON BARBA OPERATIVE REPORT DATE OF : 39 REPORT #: [id number] PHYSICIAN: ENDY BARAKAT MD PCP: CORNEL KAUFFMAN PAC REPORT IS CONFIDENTIAL AND NOT TO BE RELEASED WITHOUT AUTHORIZATION [address] [address] Signed ~ Electronically Signed By: ENDY BARAKAT MD 09/02/18 0749 PATIENT NAME: PAYTON BARBA OPERATIVE REPORT DATE OF : 39 REPORT #: [id number] PHYSICIAN: ENDY BARAKAT MD PCP: CORNEL KAUFFMAN PAC REPORT IS CONFIDENTIAL AND NOT TO BE RELEASED WITHOUT AUTHORIZATION
--- NOTE | 2018-09-02 09:00 | NUR ---
PT BACK IN HER BED AFTER HAVING BEEN UP FOR BREAKFAST. SHE STATES HER PAIN IS ACCEPTABLE FOR HER AT THIS TIME AND DENIES ANY NEED FOR MEDICATIONS. SCD'S ON, CRYO, ZOYA, ON Q AND HER CALL LIGHT IS IN REACH.
--- NOTE | 2018-09-02 09:26 | NUR ---
Pt up walking in the crocker with physical therapy. Dr Barakat here checking up on the pt.
[2018-09-02] MEDS ORDERED: SENNA LAX8.6 MG PO (09:49)
[2018-09-02] MEDS ORDERED: HYDROMORPHONE HC2 MG PO (09:49)
[2018-09-02] MEDS ORDERED: ASPIRIN EC325 MG PO (12:10)
--- NOTE | 2018-09-02 12:21 | NUR ---
CALLED TO DISCUSS D/C MEDICATIONS ORDER FOR PATIENT TO TAKE ASPRIN 325 PO FOR 30 DAYS AT HOME.
--- NOTE | 2018-09-02 12:44 | NUR ---
PT RESTING IN BED, DC INSTRUCTIONS HAVE BEEN GIVEN. PT IS NOW AWAITING HER RIDE HOME.
--- NOTE | 2018-09-02 14:05 | NUR ---
PT LAYING IN BED, INVITED ME IN. SHE HAD A BIG SMILE ON HER FACE AND TOLD ME, "I AM GOING HOME TODAY"! PT WAS FEELING GOOD ABOUT HER PROGRESS AND DISCUSSED WITH ME HER PLANS FOR REHAB. PT REQUESTED PRAYER, WILL FOLLOW NEEDED
--- NOTE | 2018-09-02 16:51 | NUR ---
FAXED CHART NOTES TO [facility] OP PT INCLUDING FACE SHEET, H AND P, OP REPORT, PROG NOTES, PT AND OT EVALS AND NOTES. RECIEVED FAX CONFIRMATION.
== END 2018-09-02 12:52 | disposition home or self-care (01) | DRG 470 ==
LOC: DS 09:00 → MS 15:21
PROVIDERS: Specialist; ADMIT Internal Medicine
PROC: 8E0YXBZ Computer Assisted Procedure of Lower Extremity (ICD-10-PCS; 2018-08-31)
PROC: 0SRD0J9 Replacement of Left Knee Joint with Synthetic Substitute, Cemented, Open Approach (ICD-10-PCS; principal; 2018-08-31 10:45)
DX: M17.12 Unilateral primary osteoarthritis, left knee (principal); F32.9 Major depressive disorder, single episode, unspecified; I10 Essential (primary) hypertension; E78.5 Hyperlipidemia, unspecified; K21.9 Gastro-esophageal reflux disease without esophagitis; F51.04 Psychophysiologic insomnia; Z87.891 Personal history of nicotine dependence; Z86.73 Personal history of transient ischemic attack (TIA), and cerebral infarction without residual deficits; Z79.02 Long term (current) use of antithrombotics/antiplatelets; Z79.899 Other long term (current) drug therapy; Z96.651 Presence of right artificial knee joint; Z88.1 Allergy status to other antibiotic agents; Z88.5 Allergy status to narcotic agent; Z88.8 Allergy status to other drugs, medicaments and biological substances
CPT/HCPCS: 01402; 64447; 76942; 94762; 97110; 97116; 97161; 97165; C1713; C1776; J0131; J0690; J1100; J1170; J1885; J2250; J2405; J2597; J2704; J2795; J3010

== ENCOUNTER 2020-03-22 09:53 | Emergency (ER) | payer MEDICARE, BC ==
[~2020-03-22] VITALS: Ht 160 cm; Wt 67.1 kg
[~2020-03-22 09:53] MED LIST changes: +ASPIRIN EC325 MG PO; +HYDROMORPHONE HC2 MG PO; +SENNA LAX8.6 MG PO
--- NOTE | 2020-03-22 11:12 | EKG ---
[facility] [address] [facility] [place] [address] Signed Normal sinus rhythm Voltage criteria for left ventricular hypertrophy Nonspecific T wave abnormality Abnormal ECG When compared with ECG of 20-JUL-2018 08:38, No significant change was found Confirmed by CHIARA PENA MD ([id number]) on 03/22/2020 11:12:15 AM Electronically Signed By: CHIARA PENA MD 03/22/20 1112 PATIENT NAME: PAYTON BARBA Electrocardiogram DATE OF : 39 PHYSICIAN: CHIARA PENA MD REPORT #: [id number] REPORT IS CONFIDENTIAL AND NOT TO BE RELEASED WITHOUT AUTHORIZATION
[2020-03-22] MEDS ORDERED: AMITRIPTYLINE H50 MG PO (13:47)
[2020-03-22] MEDS ORDERED: XARELTO20 MG PO (15:01)
[2020-03-22] MEDS ORDERED: LISINOPRIL5 MG PO (15:23)
== END 2020-03-22 16:52 | disposition home or self-care (01) ==
LOC: ED 09:53
DX: G45.9 Transient cerebral ischemic attack, unspecified (principal); I77.79 Dissection of other specified artery; I10 Essential (primary) hypertension; Z87.891 Personal history of nicotine dependence; Z88.8 Allergy status to other drugs, medicaments and biological substances; Z88.5 Allergy status to narcotic agent; Z79.899 Other long term (current) drug therapy; Z79.82 Long term (current) use of aspirin
CPT/HCPCS: 70450; 70496; 70498; 71045; 80053; 84484; 85025; 85610; 85730; 93005; 93010; 99285-25; Q9967

== ENCOUNTER 2020-07-11 15:57 | Emergency (ER) | payer OTHER ==
[~2020-07-11] VITALS: Ht 160 cm; Wt 72.6 kg
[~2020-07-11 15:57] MED LIST changes: +LISINOPRIL5 MG PO; +XARELTO20 MG PO
== END 2020-07-11 18:32 | disposition home or self-care (01) ==
LOC: ED 15:57
DX: R31.9 Hematuria, unspecified (principal); I10 Essential (primary) hypertension; Z88.8 Allergy status to other drugs, medicaments and biological substances; Z88.5 Allergy status to narcotic agent; Z79.899 Other long term (current) drug therapy
CPT/HCPCS: 51701; 81001; 99283-25

== ENCOUNTER 2021-05-10 15:28 | Emergency (ER) | payer OTHER ==
[~2021-05-10] VITALS: Ht 160 cm; Wt 70.0 kg
--- NOTE | 2021-05-11 21:57 | EKG ---
[facility] [address] [facility] [place], [place] [address] Signed Normal sinus rhythm Moderate voltage criteria for LVH, may be normal variant ( R in aVL , [place] product ) Borderline ECG When compared with ECG of 22-MAR-2020 10:24, No significant change was found Confirmed by ARACELIS DEL VALLE MD ([id number]) on 05/11/2021 9:57:31 PM Electronically Signed By: ARACELIS DEL VALLE MD 05/11/21 2157 PATIENT NAME: PAYTON BARBA Electrocardiogram DATE OF : 39 PHYSICIAN: ARACELIS DEL VALLE MD REPORT #: [id number] REPORT IS CONFIDENTIAL AND NOT TO BE RELEASED WITHOUT AUTHORIZATION
== END 2021-05-10 20:53 | disposition home or self-care (01) ==
LOC: ED 15:28
DX: R55 Syncope and collapse (principal); R11.10 Vomiting, unspecified; R19.7 Diarrhea, unspecified; I10 Essential (primary) hypertension; Z86.73 Personal history of transient ischemic attack (TIA), and cerebral infarction without residual deficits; Z88.2 Allergy status to sulfonamides; Z88.1 Allergy status to other antibiotic agents; Z88.8 Allergy status to other drugs, medicaments and biological substances; Z88.5 Allergy status to narcotic agent; Z79.899 Other long term (current) drug therapy
CPT/HCPCS: 80053; 83735; 84484; 85025; 93005; 93010; 99284-25; J7030